=== PATIENT | female | born 1985 | race Two or more races ===

== ENCOUNTER → 2021-09-12 | Outpatient (CLI) | payer OTHER ==
[~2021-09-12] MED LIST: FAMO-63 PO
--- NOTE | 2021-09-13 02:55 | RAD ---
XR EXAM OF ANKLE_LEFT 3V History: Reason: LEFT ANKLE PAIN, GANGLIAL CYST NEAR LATERAL MALLEOLOUS / Spl. Instructions: / Histo ry: Technique: 3 views left ankle Comparison: None. Findings: No dislocation. No acute fracture. Symmetric ankle mortise. Impression: 1. No acute osseous abnormality. Electronically signed by: Brian Ely DO (09/13/2021 2:52 AM) [facility]
== END ==
LOC: RAD 10:28
PROVIDERS: ATTEND Podiatrist
DX: M25.572 Pain in left ankle and joints of left foot (principal)
CPT/HCPCS: 73610

== ENCOUNTER 2021-09-17 19:38 | Emergency (ER) | payer OTHER ==
[~2021-09-17] VITALS: Ht 157.5 cm; Wt 80.0 kg
--- NOTE | 2021-09-17 20:01 | PHYS DOC ---
General Adult HPI: HPI: ".. I am having another one of my allergic reactions... ".. " I don't know what is causing these episodes..." Patient is a 36 year old female who presents with above hx and complaints of allergic reaction. Patient is a several episodes where she developed hives. Currently she has hives and erythemic itchy areas all over her body. The most prevalent on her back. Patient did take a warm shower to try to relieve the itching however this only exacerbated her symptoms. Patient denies any new foods. Patient denies any new meds. Patient denies any new soaps or personal hygiene products. Patient denies any recent travel. Notes no history immunosuppression. Does have a confirmed allergy to sulfa and sulfa medications. Previous skin allergy testing did not identify a possible source of her episodic hives. Patient has been taking Zyrtec with minimal relief. Pt. normally follows with Dr. Katy Foote Review of Systems: Review of Systems: Constitutional: Denies fever or chills Eyes: Denies change in visual acuity HENT: Denies nasal congestion or sore throat Respiratory: Denies cough or shortness of breath Cardiovascular: Denies chest pain or edema GI: Denies abdominal pain, nausea, vomiting, bloody stools or diarrhea : Denies dysuria Musculoskeletal: Denies back pain or joint pain Integument: Complains of rash/hives Neurologic: Denies headache, focal weakness or sensory changes Endocrine: Denies polyuria or polydipsia Lymphatic: Denies swollen glands Psychiatric: Denies depression or anxiety Family History: Family History: Noncontributory to presentation Current Medications: Current Meds: See nursing for home meds Allergies: Allergies: Sulfa allergy Physical Exam: PE: Constitutional: In moderate acute distress, non-toxic appearance. [] HENT: Normocephalic, atraumatic, bilateral external ears normal, oropharynx moist, no oral exudates, nose slightly swollen turbinates with clear rhinorrhea Eyes: PERRLA, EOMI, conjunctiva normal, no discharge. [] Neck: Normal range of motion, no tenderness, supple, no stridor. [] Cardiovascular:Heart rate regular rhythm, no murmur [] Lungs & Thorax: Bilateral breath sounds equal at apex with few scattered wheezes on auscultation [] Abdomen: Bowel sounds normal, soft, no tenderness, no masses, no pulsatile masses. Obese Skin: Warm, dry, diffuse erythemic rash/hives Back: No tenderness, no CVA tenderness. [] Extremities: No tenderness, no cyanosis, no clubbing, ROM intact, no edema. [] Neurologic: Alert and oriented X 3, normal motor function, normal sensory fun ction, no focal deficits noted. [] Psychologic: Affect anxious,, judgement normal, mood normal. [] EKG: EKG: [] Radiology/Procedures: Radiology/Procedures: [] Heart Score: C/O Chest Pain: N/A Risk Factors: Risk Factors: DM, Current or recent (<one month) smoker, HTN, HLP, family history of CAD, obesity. Risk Scores: Score 0 - 3: 2.5% MACE over next 6 weeks - Discharge Home Score 4 - 6: 20.3% MACE over next 6 weeks - Admit for Clinical Observation Score 7 - 10: 72.7% MACE over next 6 weeks - Early Invasive Strategies Course & Med Decision Making: Course & Med Decision Making Pertinent Labs and Imaging studies reviewed. (See chart for details) Patient to try and identify etiology or cause of her episodes of hives. Advised this may be a combined response 1 or more items together because of the reaction whether alone they do not. Follow-up primary care. We will give Depo- Medrol.40. Pepcid, 20 twice daily and patient to use. Patient to use Ventolin. MDI 2 puffs 4 times a day. Patient may also take Benadryl 25 to 50 mg 4 times a day when home. Impression: 1. Allergic reaction-hives [] Dragon Disclaimer: Dragon Disclaimer: This electronic medical record was generated, in whole or in part, using a voice recognition dictation system. Departure Departure: Referrals: FABRICE INGRAM DO, [facility] (PCP) Scripts Famotidine (PEPCID) 20 Mg Tablet 20 MG PO BID for hives for 30 Days, #60 TAB Prov: YORDY VIRAMONTES MD 09/17/21 Tanya Disclaimer This chart was dictated in whole or in part using Voice Recognition software in a busy, high-work load, and often noisy Emergency Department environment. It may contain unintended and wholly unrecognized errors or omissions. YORDY VIRAMONTES MD Sep 17, 2021 20:00
[2021-09-17] MEDS ORDERED: ALBUTEROL SULFATE 8GM INHALER. INH ONE (20:45)
[2021-09-17] MEDS ORDERED: FAMOTIDINE 20 MG TABLET PO ONE (20:45)
[2021-09-17] MEDS ORDERED: methylPREDNISolone ACETATE 40 MG/ML VIAL. IM ONE (20:45)
[2021-09-17] MEDS ORDERED: FAMO-63 PO (21:02)
[2021-09-17 21:03] VITALS: BP 120/56
== END 2021-09-17 21:14 | disposition home or self-care (01) ==
LOC: ER 19:38
DX: T78.40XA Allergy, unspecified, initial encounter (principal); L50.9 Urticaria, unspecified; Z88.2 Allergy status to sulfonamides; X58.XXXA Exposure to other specified factors, initial encounter
CPT/HCPCS: 94640; 96372; 99283; J1030; 94664